=== PATIENT | female | born 1950 | race Caucasian/White ===

== ENCOUNTER 2020-12-14 09:45 | Outpatient (CLI) | payer MEDICARE, OTHER | END 2020-12-14 09:46 | disposition home or self-care (01) | LOC: CSHULT 09:45 | PROVIDERS: ATTEND Internal Medicine | DX: Z13.6 Encounter for screening for cardiovascular disorders (principal) | CPT/HCPCS: 76706 ==

== ENCOUNTER 2021-09-19 10:43 | Outpatient (CLI) | payer MEDICARE, OTHER | END 2021-09-19 10:44 | disposition home or self-care (01) | LOC: CSHMAMMO 10:43 | PROVIDERS: ATTEND Internal Medicine | DX: Z12.31 Encounter for screening mammogram for malignant neoplasm of breast (principal) | CPT/HCPCS: 77063; 77067 ==

== ENCOUNTER 2022-01-04 12:17 | Outpatient (CLI) | payer MEDICARE, OTHER | END 2022-01-04 12:18 | disposition home or self-care (01) | LOC: CSHULT 12:17 | PROVIDERS: ATTEND Internal Medicine | DX: R22.1 Localized swelling, mass and lump, neck (principal) | CPT/HCPCS: 76536 ==

== ENCOUNTER 2022-07-09 16:06 | Emergency (ER) | payer MEDICARE, OTHER ==
[2022-07-09] MEDS ORDERED: traMADol HCl 50 MG TAB ONE (18:16)
== END 2022-07-09 18:21 | disposition home or self-care (01) ==
LOC: CSHERS 16:06
DX: S42.212A Unspecified displaced fracture of surgical neck of left humerus, initial encounter for closed fracture (principal); E11.9 Type 2 diabetes mellitus without complications; E78.5 Hyperlipidemia, unspecified; I10 Essential (primary) hypertension; Z79.899 Other long term (current) drug therapy; Z79.82 Long term (current) use of aspirin; Z79.84 Long term (current) use of oral hypoglycemic drugs; W19.XXXA Unspecified fall, initial encounter; Y93.K1 Activity, walking an animal

== ENCOUNTER 2022-09-21 10:35 | Outpatient (CLI) | payer MEDICARE, OTHER | END 2022-09-21 10:36 | disposition home or self-care (01) | LOC: CSHMAMMO 10:35 | PROVIDERS: ATTEND Internal Medicine | DX: Z12.31 Encounter for screening mammogram for malignant neoplasm of breast (principal); R92.1 Mammographic calcification found on diagnostic imaging of breast; M85.852 Other specified disorders of bone density and structure, left thigh; M85.851 Other specified disorders of bone density and structure, right thigh | CPT/HCPCS: 77063; 77067; 77080 ==

== ENCOUNTER 2024-03-20 12:28 | Outpatient (CLI) | payer MEDICARE, OTHER | END 2024-03-20 12:29 | disposition home or self-care (01) | LOC: CSHMAMMO 12:28 | PROVIDERS: ATTEND Nurse Practitioner | DX: Z12.31 Encounter for screening mammogram for malignant neoplasm of breast (principal) | CPT/HCPCS: 77063; 77067 ==